=== PATIENT | female | born 1970 | race African-American/Black ===

== ENCOUNTER 2020-02-20 18:22 | Emergency (ER) | payer OTHER ==
[~2020-02-20] VITALS: Ht 162.6 cm; Wt 55.0 kg
[2020-02-20 18:30] VITALS: BP 109/78
[2020-02-20] MEDS ORDERED: ACETAMINOPHEN 325MG TABLET PO ONE (18:45)
[2020-02-20] MEDS ORDERED: LIDOCAINE HCL/EPINEPHRINE 1%-EPI 1:100,000 30 ML VIAL INFIL ONE (18:45)
[2020-02-20] MEDS ORDERED: LIDOCAINE HCL/EPINEPHRINE 1%-EPI 1:100,000 20 ML VIAL INFIL NR (19:00)
== END 2020-02-20 19:15 | disposition home or self-care (01) ==
LOC: ER 18:22
DX: S01.81XA Laceration without foreign body of other part of head, initial encounter (principal); Y35.93XA Legal intervention, means unspecified, suspect injured, initial encounter; Y93.89 Activity, other specified; Y92.89 Other specified places as the place of occurrence of the external cause
CPT/HCPCS: 12013; 99283; J3490

== ENCOUNTER 2020-02-21 03:05 | Emergency (ER) | payer OTHER ==
[~2020-02-21] VITALS: Ht 170.2 cm; Wt 64.0 kg
[2020-02-21 03:10] VITALS: BP 109/88
== END 2020-02-21 03:37 | disposition left against medical advice (07) ==
LOC: ER 03:05
DX: Z53.21 Procedure and treatment not carried out due to patient leaving prior to being seen by health care provider (principal)

== ENCOUNTER 2020-06-04 05:14 | Emergency (ER) | payer OTHER ==
[~2020-06-04] VITALS: Ht 165.1 cm; Wt 70.0 kg
[2020-06-04 08:08] LABS: CHLORIDE 106 mEq/L (98-107)
[2020-06-04 08:37] LABS: BASOPHILS % 0.5 % (0.0-2.0); EOSINOPHILS % 1.8 % (0.0-5.0); HEMATOCRIT. 36.1 % (36.0-48.0); HEMOGLOBIN. 11.2 g/dL (12.0-16.0); LYMPHOCYTES % 33.2 % (20.0-50.0); MEAN CORPUSCULAR HEMOGLOBIN 23.3 pg (28.0-32.0); MEAN CORPUSCULAR VOLUME 75.2 fL (81.0-99.0); MONOCYTES % 7.1 % (2.0-8.0); NEUTROPHILS % 57.4 % (40.0-76.0); PLATELET 191 x1000/uL (130-400)
[2020-06-04 13:00] VITALS: BP 115/68
== END 2020-06-04 13:00 | disposition home or self-care (01) ==
LOC: ER 05:14
DX: U07.1 COVID-19 (principal)
CPT/HCPCS: 36415; 71045; 80053; 85025; 87635; 99284; C9803